=== PATIENT | male | born 1990 | race African-American/Black ===

== ENCOUNTER 2018-06-30 22:20 | Emergency (ER) | payer SELFPAY ==
--- NOTE | 2018-06-30 23:32 | ER ---
Nurse's Notes [facility] Name: Silver Montano Age: 28 yrs Sex: Male : 1990 Arrival Date: 06/30/2018 Time: 22:25 Bed 9 Private MD: Diagnosis: Otalgia, left ear Presentation: 06/30 22:33 Presenting complaint: Patient states: left ear pain x 1 week, hearing sounds muffled. tl2 Denies drainage. Transition of care: patient was not received from another setting of care. Onset of symptoms was June 23, 2018. Risk Assessment: Do you want to hurt yourself or someone else? Patient reports no desire to harm self or others. Initial Sepsis Screen: Does the patient meet any 2 criteria? No. Patient's initial sepsis screen is negative. Does the patient have a suspected source of infection? No. Patient's initial sepsis screen is negative. Care prior to arrival: None. 22:33 Method Of Arrival: Ambulatory tl2 22:33 Acuity: LESLYE 4 tl2 Triage Assessment: 22:34 General: Appears in no apparent distress. comfortable, Behavior is calm, cooperative, tl2 appropriate for age. Pain: Complains of pain in left ear. Historical: - Allergies: 22:34 No Known Allergies; tl2 - Home Meds: 22:34 None [Active]; tl2 - PMHx: 22:34 None; tl2 - PSHx: 22:34 None; tl2 - Immunization history:: Adult Immunizations up to date. - Social history:: Smoking status: Patient uses tobacco products, smokes one-half pack cigarettes per day. - Ebola Screening: : No symptoms or risks identified at this time. Screenin:10 Abuse screen: Denies threats or abuse. Nutritional screening: No deficits noted. tl2 Tuberculosis screening: No symptoms or risk factors identified. Fall Risk None identified. Assessment: 23:10 General: Appears in no apparent distress. uncomfortable, Behavior is calm, cooperative, tl2 appropriate for age. Pain: Complains of pain in left ear. Neuro: Level of Consciousness is awake, alert, obeys commands, Oriented to person, place, time, situation. Cardiovascular: Denies chest pain. Respiratory: Airway is patent Respiratory effort is even, unlabored, Respiratory pattern is regular, symmetrical. GI: No signs and/or symptoms were reported involving the gastrointestinal system. EENT: Ear canal clear on left ear. Derm: Skin is pink, warm \T\ dry. 23:30 Reassessment: Patient appears in no apparent distress at this time. pt understood med tl2 screen process and elected to leave without treatment. Vital Signs: 22:34 BP 129 / 74; Pulse 90; Resp 18; Temp 98.1(O); Pulse Ox 98% on R/A; Weight 101.6 kg; tl2 Height 6 ft. 0 in. (182.88 cm); Pain 4/10; 22:34 Body Mass Index 30.38 (101.60 kg, 182.88 cm) tl2 ED Course: 22:25 Patient arrived in ED. tl2 22:33 Triage completed. tl2 22:34 Arm band placed on right wrist. tl2 23:02 Jonah Mora PA is PHCP. pipo 23:02 Osvaldo Dixon MD is Attending Physician. [facility] 23:10 Patient has correct armband on for positive identification. Bed in low position. Call tl2 light in reach. Side rails up X 1. 23:22 No provider procedures requiring assistance completed. Patient did not have IV access tl2 during this emergency room visit. 23:30 Lori Ayala, RN is Primary Nurse. tl2 Administered Medications: No medications were administered Outcome: 23:22 Medical screen evaluation completed per provider. Patient declined treatment. tl2 23:22 Condition: stable 23:22 Following a medical screening exam, the patient was provided information regarding alternative care sites and resources available per registration personnel. 23:32 Discharge ordered by . tw4 23:38 Patient left the ED. tl2 Signatures: Jonah Mora PA PA jmm Knox, Taylor, RN RN valery2 Osvaldo Dixon MD MD tw4
--- NOTE | 2018-06-30 23:32 | EDPHYS ---
Physician Documentation [facility] Name: Sliver Montano Age: 28 yrs Sex: Male : 1990 Arrival Date: 06/30/2018 Time: 22:25 Bed 9 Private MD: ED Physician Osvaldo Dixon HPI: 06/30 23:24 This 28 yrs old Black Male presents to ER via Ambulatory with complaints of Ear Pain. tw4 23:24 The patient presents with pain. The complaints affect the left ear. tw4 23:25 Onset: The symptoms/episode began/occurred 1 week(s) ago. Modifying factors: The tw4 symptoms are alleviated by nothing, the symptoms are aggravated by. Associated signs and symptoms: The patient has no apparent associated signs or symptoms. Severity of symptoms: At their worst the symptoms were very mild in the emergency department the symptoms are unchanged. The patient has not experienced similar symptoms in the past. Historical: - Allergies: 22:34 No Known Allergies; tl2 - Home Meds: 22:34 None [Active]; tl2 - PMHx: 22:34 None; tl2 - PSHx: 22:34 None; tl2 - Immunization history:: Adult Immunizations up to date. - Social history:: Smoking status: Patient uses tobacco products, smokes one-half pack cigarettes per day. - Ebola Screening: : No symptoms or risks identified at this time. ROS: 23:25 Constitutional: Negative for fever, chills, and weight loss, Eyes: Negative for injury, tw4 pain, redness, and discharge, Cardiovascular: Negative for chest pain, palpitations, and edema, Respiratory: Negative for shortness of breath, cough, wheezing, and pleuritic chest pain, Abdomen/GI: Negative for abdominal pain, nausea, vomiting, diarrhea, and constipation. 23:25 MS/Extremity: Negative for injury and deformity, Skin: Negative for injury, rash, and discoloration. 23:25 ENT: Positive for ear pain. Exam: 23:25 Constitutional: This is a well developed, well nourished patient who is awake, alert, tw4 and in no acute distress. Head/Face: Normocephalic, atraumatic. 23:25 Chest/axilla: Normal chest wall appearance and motion. Nontender with no deformity. No lesions are appreciated. Cardiovascular: Regular rate and rhythm with a normal S1 and S2. No gallops, murmurs, or rubs. Normal PMI, no JVD. No pulse deficits. Respiratory: Lungs have equal breath sounds bilaterally, clear to auscultation and percussion. No rales, rhonchi or wheezes noted. No increased work of breathing, no retractions or nasal flaring. Abdomen/GI: Soft, non-tender, with normal bowel sounds. No distension or tympany. No guarding or rebound. No evidence of tenderness throughout. 23:25 ENT: External ear(s): are unremarkable, Ear canal(s): are normal, TM's: are normal, Examination of the other ear shows no obvious abnormality, Nose: is normal. Vital Signs: 22:34 BP 129 / 74; Pulse 90; Resp 18; Temp 98.1(O); Pulse Ox 98% on R/A; Weight 101.6 kg; tl2 Height 6 ft. 0 in. (182.88 cm); Pain 4/10; 22:34 Body Mass Index 30.38 (101.60 kg, 182.88 cm) tl2 MDM: 23:06 Patient medically screened. tw4 23:30 Differential diagnosis: otitis media, otitis externa, ruptured TM. Data reviewed: vital tw4 signs, nurses notes. Medical screen evaluation completed. EMTALA emergency medical condition absent. Special discussion: I discussed with the patient/guardian in detail that at this point there is no indication for admission to the hospital. It is understood, however, that if the symptoms persist or worsen the patient needs to return immediately for re-evaluation. Administered Medications: No medications were administered Disposition: 06/30/18 23:32 Discharged to Home. Impression: Otalgia, left ear. - Condition is Stable. - Discharge Instructions: Earache, Adult. - Medication Reconciliation Form, Thank You Letter, Antibiotic Education, Prescription Opioid Use form. - Follow up: Private Physician; When: Upon discharge from the Emergency Department; Reason: If symptoms return, Recheck today's complaints, Continuance of care. - Problem is new. - Symptoms have improved. Signatures: Lori Ayala RN RN tl2 Osvaldo Dixon MD MD tw4 Corrections: (The following items were deleted from the chart) 23:38 23:32 06/30/2018 23:32 Discharged to Home. Impression: Otalgia, left ear. Condition is tl2 Stable. Forms are Medication Reconciliation Form, Thank You Letter, Antibiotic Education, Prescription Opioid Use. Follow up: Private Physician; When: Upon discharge from the Emergency Department; Reason: If symptoms return, Recheck today's complaints, Continuance of care. Problem is new. Symptoms have improved. tw4
== END 2018-06-30 23:38 | disposition home or self-care (01) ==
LOC: ER 22:20
DX: H92.02 Otalgia, left ear (principal); F17.210 Nicotine dependence, cigarettes, uncomplicated